=== PATIENT | male | born 1945 | race Caucasian/White ===

== ENCOUNTER 2018-12-15 00:35 | Emergency (ER) | payer OTHER ==
[~2018-12-15] VITALS: Ht 188 cm; Wt 109.1 kg
[2018-12-15] MEDS ORDERED: TRAZ-252 PO (03:26)
[2018-12-15] MEDS ORDERED: PROAAER10 INH (03:26)
[2018-12-15] MEDS ORDERED: B-12100T2 PO (03:26)
[2018-12-15] MEDS ORDERED: BREO1INH3 PO (03:26)
[2018-12-15] MEDS ORDERED: LEVOTAB10 PO (03:26)
[2018-12-15] MEDS ORDERED: TOPR25TA PO (03:26)
[2018-12-15] MEDS ORDERED: CVS5CHW2 PO (03:26)
[2018-12-15] MEDS ORDERED: METF500T13 PO (03:26)
[2018-12-15] MEDS ORDERED: LOSA50TA5 PO (03:26)
[2018-12-15] MEDS ORDERED: CLOP75TA2 PO (03:26)
[2018-12-15] MEDS ORDERED: VITAD1000T PO (03:26)
[2018-12-15] MEDS ORDERED: ROSU10TA6 PO (03:26)
[2018-12-15] MEDS ORDERED: GLIP2.5T6 PO (03:26)
[2018-12-15] MEDS ORDERED: B-12100010 PO (03:29)
[2018-12-15 03:30] LABS: BASO % 0.5 % (0.0-1.0); EOS # 0.3 10^3/uL (0.0-0.50); EOS % 3.8 % (0.0-3.0); HEMATOCRIT 42.9 % (42.0-52.0); LYMPH # 1.6 10^3/uL (1.5-4.5); LYMPH % 19.2 % (24.0-44.0); MEAN CORPUSCULAR HEMOGLOBIN 33.1 pg (27.0-33.0); MEAN CORPUSCULAR VOLUME 94.7 fl (80.0-96.0); MONO # 1.1 10^3/uL (0.0-0.8); MONO % 12.7 % (0.0-5.0); NEUTROPHILS # 5.3 10^3/uL (1.8-7.7); NEUTROPHILS % 63.2 % (36.0-66.0); PLATELET COUNT, AUTOMATED 171 10^3/uL (150-450); RED BLOOD COUNT 4.53 10^6/uL (4.30-6.10); WHITE BLOOD COUNT 8.3 10^3/uL (4.0-10.0)
[2018-12-15 03:57] LABS: C REACTIVE PROTEIN QUANTITATIV 9.06 MG/DL (0.00-0.30); CALCIUM LEVEL 8.8 MG/DL (8.8-10.2); CREATININE FOR GFR 1.4 MG/DL (0.70-1.30)
[2018-12-15 04:01] LABS: ERYTHROCYTE SEDIMENTATION RATE 46 mm/hr (0-20)
--- NOTE | 2018-12-15 04:52 | REPVR ---
EXAM: US Duplex Left Lower Extremity Veins, Limited EXAM DATE/TIME: 12/15/2018 3:45 AM CLINICAL HISTORY: 73 years old, male; Edema, localized; Lower extremity, left; Additional info: Pain and swelling in left lower leg TECHNIQUE: Imaging protocol: Real-time Duplex ultrasound of the Left Lower Extremity with 2-D chery scale, color Doppler flow and spectral waveform analysis. Limited exam focused on the left lower extremity veins. COMPARISON: No relevant prior studies available. FINDINGS: Left deep veins: Unremarkable. The common femoral, femoral, proximal profunda femoral and popliteal veins are patent without thrombus. Normal Doppler waveforms. Normal compressibility and/or augmentation response. Left superficial veins: Unremarkable. Saphenofemoral junction is patent without thrombus. Soft tissues: Unremarkable. IMPRESSION: No acute findings. No evidence of deep vein thrombosis. Electronically signed by: David Ly On 12/15/2018 04:51:58 AM
[2018-12-15] MEDS ORDERED: NS 1,000 ML IV ONE (06:45)
[2018-12-15] MEDS ORDERED: ceFAZolin SOD 1 GM in D5W MINI-BAG PLUS 50 ML IV ONE (06:45)
[2018-12-15] MEDS ORDERED: KEFL500C17 PO (08:28)
--- NOTE | 2018-12-15 08:49 | REP ---
Left foot series: Two views. History: Rule out osteomyelitis great toe. Findings: AP and lateral views of the left foot demonstrate extensive vascular calcification across the ankle into the forefoot. 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 There is no acute erosive change. No soft tissue gas is seen. Achilles and plantar calcaneal spurs are noted. 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 No acute erosive changes. Electronically Signed by Jeferson Copeland MD 12/15/2018 04:42 P
[2018-12-15 08:54] VITALS: BP 152/72
== END 2018-12-15 08:55 | disposition home or self-care (01) ==
LOC: M ED 00:35
DX: L03.116 Cellulitis of left lower limb (principal); E11.621 Type 2 diabetes mellitus with foot ulcer; I10 Essential (primary) hypertension; K21.9 Gastro-esophageal reflux disease without esophagitis; Z79.899 Other long term (current) drug therapy; Z79.84 Long term (current) use of oral hypoglycemic drugs; Z79.02 Long term (current) use of antithrombotics/antiplatelets
CPT/HCPCS: 36415; 73620; 80048; 85025; 85652; 86140; 87040; 93971; 96361; 96365; 99284; J0690